=== PATIENT | female | born 1980 | race Caucasian/White ===

== ENCOUNTER 2020-04-07 13:53 | Observation (INO) | payer OTHER ==
[~2020-04-07] VITALS: Ht 172.7 cm; Wt 81.0 kg
[2020-04-07] MEDS ORDERED: LACTATED RINGERS 1,000 ML IV SCH (14:12)
[2020-04-07 14:20] VITALS: BP 130/86
[2020-04-07] MEDS ORDERED: CHLORHEXIDINE 15 ML UDC MM ONE (14:30)
[2020-04-07] MEDS ORDERED: PLEASE ENTER HEIGHT AND WEIGHT MC SCH (14:30)
[2020-04-07] MEDS ORDERED: PLEASE ENTER ALLERGIES MC SCH (14:30)
[2020-04-07] MEDS ORDERED: OXYC5TAB3 PO (14:36)
[2020-04-07] MEDS ORDERED: ASPI-496 PO (14:36)
[2020-04-07] MEDS ORDERED: ONDA4TAB7 PO (14:36)
[2020-04-07] MEDS ORDERED: ACYC-114 PO (14:36)
[2020-04-07] MEDS ORDERED: FENTANYL PF 250 MCG/5ML ONE (14:56)
[2020-04-07] MEDS ORDERED: MIDAZOLAM 1 MG/ML, 2ML ONE (14:56)
[2020-04-07] MEDS ORDERED: LIDOCAINE-MPF 1%, 2ML ONE (15:00)
[2020-04-07] MEDS ORDERED: SUCCINYLCHOLINE 20 MG/ML, 10ML ONE (15:20)
[2020-04-07] MEDS ORDERED: PROPOFOL 10 MG/ML, 20ML ONE (15:20)
[2020-04-07] MEDS ORDERED: ROCURONIUM 10 MG/ML,10ML ONE (15:20)
[2020-04-07] MEDS ORDERED: DEXAMETHASONE 4 MG/ML, 1ML ONE (15:20)
[2020-04-07] MEDS ORDERED: LABETALOL 5MG/ML, 20ML IV PRN (16:00)
[2020-04-07] MEDS ORDERED: METOCLOPRAMIDE 5 MG/ML, 2ML IV PRN (16:00)
[2020-04-07] MEDS ORDERED: PROMETHAZINE 25 MG/ML, 1ML IV PRN (16:00)
[2020-04-07] MEDS ORDERED: ONDANSETRON 2MG/ML, 2ML IVPush PRN (16:00)
[2020-04-07] MEDS ORDERED: hydrALAzine 20 MG/ML, 1ML IV PRN (16:00)
[2020-04-07] MEDS ORDERED: KETOROLAC 30 MG/1 ML IV PRN (16:00)
[2020-04-07] MEDS ORDERED: DIAZEPAM 5 MG/ML, 2ML IV PRN ×2 (16:00)
[2020-04-07] MEDS ORDERED: MEPERIDINE/PF 25MG/0.5ML IVPush PRN (16:00)
[2020-04-07] MEDS ORDERED: OXYcodone 5 MG/5 ML ORAL.SOL UDC PO PRN (16:00)
[2020-04-07] MEDS ORDERED: ALBUTEROL SULFATE 2.5 MG/3 ML NPPB PRN (16:00)
[2020-04-07] MEDS ORDERED: ENOXAPARIN 40 MG/0.4 ML SQ SCH (17:00)
[2020-04-07] MEDS ORDERED: PROMETHAZINE 25 MG/ML, 1ML ONE (17:09)
[2020-04-07] MEDS ORDERED: FENTANYL PF 100 MCG/2ML ONE ×2 (17:10→18:24)
[2020-04-07] MEDS ORDERED: OXYcodone 5 MG/5 ML ORAL.SOL UDC ONE (17:10)
[2020-04-07] MEDS ORDERED: HYDROmorphone 1 MG/ML, 1ML INJ ONE ×2 (17:10→17:33)
[2020-04-07] MEDS: FENTANYL PF 100 MCG/2ML IV PRN ×3 (17:11→18:27)
[2020-04-07] MEDS: HYDROmorphone 1 MG/ML, 1ML INJ IV PRN ×4 (17:16→17:49)
[2020-04-07] MEDS ORDERED: DIAZEPAM 5 MG/ML, 2ML ONE (17:39)
[2020-04-07 20:28] VITALS: BP 126/80
[2020-04-07] MEDS: ONDANSETRON 2MG/ML, 2ML IVPush PRN (21:48)
[2020-04-07] MEDS: OXYcodone IR 5MG TABLET PO PRN (21:48)
[2020-04-07] MEDS: CEFAZOLIN PMX 1GM/50ML 50 ML IV SCH (22:34)
[2020-04-08 00:10] VITALS: BP 104/68
[2020-04-08] MEDS: OXYcodone IR 5MG TABLET PO PRN ×2 (02:06→07:34)
[2020-04-08 04:09] VITALS: BP 93/61
[2020-04-08] MEDS: CEFAZOLIN PMX 1GM/50ML 50 ML IV SCH (06:24)
[2020-04-08] MEDS: ONDANSETRON 2MG/ML, 2ML IVPush PRN (07:35)
[2020-04-08 08:03] VITALS: BP 113/70
[2020-04-08] MEDS ORDERED: ACETAMINOPHEN 325 MG TABLET PO PRN (10:30)
[2020-04-08] MEDS ORDERED: OXYC5TAB3 PO (10:36)
[2020-04-08] MEDS ORDERED: CEPH-368 PO (10:37)
[2020-04-08] MEDS ORDERED: DOCU-131 PO (10:37)
[2020-04-08] MEDS ORDERED: ACET-1600 PO (10:38)
[2020-04-08] MEDS ORDERED: KETOROLAC 30 MG/1 ML IM PRN (11:00)
[2020-04-08] MEDS ORDERED: CEPHALEXIN 500 MG CAPSULE PO SCH (11:00)
[2020-04-08 12:22] VITALS: BP 105/69
[2020-04-08] MEDS ORDERED: OXYcodone IR 5MG TABLET PO PRN (13:00)
[2020-04-08] MEDS ORDERED: KETOROLAC 30 MG/1 ML IVPush PRN (17:00)
== END 2020-04-08 14:40 | disposition home or self-care (01) ==
LOC: OR 13:53 → EDIP 16:53 → 4NE 18:46
PROVIDERS: ADMIT Orthopaedic Surgery; ATTEND Orthopaedic Surgery
DX: Z03.818 Encounter for observation for suspected exposure to other biological agents ruled out (principal); M17.12 Unilateral primary osteoarthritis, left knee; M21.069 Valgus deformity, not elsewhere classified, unspecified knee; Z79.899 Other long term (current) drug therapy; Z79.82 Long term (current) use of aspirin
CPT/HCPCS: 27450; 73552; 76000; 87070; 87075; 87077; 87116; 87205; 87206; 87635; 89051; 93971; 96365; 96366; 96372; 96375; 96376; 97161; G0378; J0330; J0690; J1100; J1170; J1650; J1885; J2250; J2405; J2704; J3010; 87186